=== PATIENT | male | born 1955 | race Caucasian/White ===

== ENCOUNTER → 2020-03-17 11:10 | Outpatient (CLI) | payer OTHER, SELFPAY ==
--- NOTE | 2020-03-17 | DI.RAD.S_ITS ---
PROCEDURE: XR KNEE RT 1TO2V INDICATIONS: PAIN IN RIGHT KNEE TECHNIQUE: 2 views of the knee were acquired. COMPARISON: None. FINDINGS: Bones: No fractures or dislocations. No suspicious bony lesions. Moderate narrowing of medial femorotibial joint and tricompartmental periarticular osteophyte formation. Soft tissues: No joint effusion. No suspicious soft tissue calcifications. 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 Dictated by: Zeferino Baird [facility] Interpreted: Elizabeth Brown MD on 03/17/2020 at 12:19 Approved by: Elizabeth Brown M.D. on 03/17/2020 at 13:07
== END ==
DX: M25.561 Pain in right knee (principal); M17.11 Unilateral primary osteoarthritis, right knee
CPT/HCPCS: 73560